=== PATIENT | male | born 1960 | race Caucasian/White ===

== ENCOUNTER 2022-09-17 13:50 | Emergency (ER) | payer OTHER ==
[2022-09-17 14:05] VITALS: BP 158/105; PULSE 90; RESP 16; TEMP 97.9; BMI 31.4
== END 2022-09-17 14:27 | disposition home or self-care (01) ==
LOC: FER 13:50
DX: R05.9 Cough, unspecified (principal); R09.81 Nasal congestion; J01.10 Acute frontal sinusitis, unspecified; J06.9 Acute upper respiratory infection, unspecified
CPT/HCPCS: 99283-25